=== PATIENT | female | born 1990 | race Caucasian/White ===

== ENCOUNTER 2017-05-22 22:09 | Emergency (ER) | payer BC, OTHER ==
[2017-05-23] MEDS: DEXAMETHASONE 10 MG/ML 1 ML INJ IV (01:46)
[2017-05-23] MEDS: KETOROLAC 30 MG INJ IV (01:47)
[2017-05-23] MEDS: CLINDAMYCIN 300 MG/D5W (PMX) 50 ML IVPB (01:47)
[2017-05-23] MEDS: LIDOCAINE 2%/EPI MPF (SDV) 20 ML VIAL INJ (05:28)
== END 2017-05-23 05:48 | disposition home or self-care (01) ==
LOC: FTE 22:09 → E/R 05-23 05:48
DX: J36 Peritonsillar abscess (principal)
CPT/HCPCS: 96374; 96375; 99284-25; J1100